=== PATIENT | female | born 1985 | race Caucasian/White ===

== ENCOUNTER 2017-10-07 23:53 | Emergency (ER) | payer MEDICAID ==
[~2017-10-07] VITALS: Ht 162.6 cm; Wt 105.7 kg
[2017-10-07 23:58] VITALS: Ht 162.6 cm; Wt 105.7 kg
[2017-10-08 00:45] LABS: CALCIUM 8.4 mg/dL (8.5-10.1); CARBON DIOXIDE 28.9 mmol/L (21-32); CHLORIDE SERUM 106 mmol/L (98-107); CREATININE SERUM 0.9 mg/dL (0.6-1.0); GFR1 > 60 mL/min; GLUCOSE SERUM 124 mg/dL (74-106); POTASSIUM SERUM 3.3 mmol/L (3.5-5.1); SODIUM SERUM 141 mmol/L (136-145)
[2017-10-08 00:51] LABS: BASOPHIL % 0.3 % (0-2); PLATELET COUNT 296 x10^3mcL (130-400)
[2017-10-08 00:54] LABS: RED CELL DISTRIBUTION WIDTH 15.1 % (11.5-14.5)
[2017-10-08 00:55] LABS: ALBUMIN 3.5 g/dL (3.4-5.0); ALKALINE PHOSPHATASE 83 U/L (46-116); ALT/SGPT 58 U/L (14-59); AST/SGOT 27 U/L (15-37); BILIRUBIN TOTAL 0.2 mg/dL (0.20-1.00); TOTAL PROTEIN, SERUM 7.5 g/dL (6.4-8.2)
[2017-10-08 01:27] VITALS: BP 145/89
== END 2017-10-08 01:27 | disposition home or self-care (01) ==
LOC: ED 23:53
PROVIDERS: Emergency Medicine
DX: R07.89 Other chest pain (principal); Z90.49 Acquired absence of other specified parts of digestive tract
CPT/HCPCS: 36415; 83880; J1885; Q0092